=== PATIENT | female | born 1950 | race Caucasian/White ===

== ENCOUNTER → 2021-09-26 12:45 | Outpatient (BNVA) | payer OTHER, SELFPAY | PROVIDERS: Visit Provider Podiatrist Foot & Ankle Surgery | DX: B07.9 Viral wart, unspecified (principal); F17.210 Nicotine dependence, cigarettes, uncomplicated | CPT/HCPCS: 17110; 99203 ==

== ENCOUNTER 2021-10-31 13:39 | Outpatient (CLI) | payer OTHER, SELFPAY ==
--- NOTE | 2021-10-31 13:43 | US_ITS ---
WS: [id number] RIGHT UPPER QUADRANT ULTRASOUND HISTORY: R SIDED PAIN/BLOATING COMPARISON: None available. Liver: 14.3 cm in length. Moderate coarse echogenicity throughout the liver. Liver is normal size. No bile duct dilatation. No mass. Portal Vein: Normal hepatopetal flow with monophasic waveform. Gallbladder: Normally distended gallbladder with no stones or wall thickening. CBD: 0.7 cm Pancreas: Normal size and echogenicity. Right kidney: 10.7 cm in length. Normal size and echogenicity. No hydronephrosis or mass. Aorta and IVC: Unremarkable abdominal aorta and IVC. No ascites. US/US abdomen limited [id number] IMPRESSION: 1. Normal gallbladder. 2. Hepatic steatosis. No hepatomegaly.
== END 2021-10-31 13:40 | disposition home or self-care (01) ==
LOC: RAD 13:39
PROVIDERS: Visit Provider Nurse Practitioner
DX: B07.9 Viral wart, unspecified (principal); R14.0 Abdominal distension (gaseous); Z01.89 Encounter for other specified special examinations
CPT/HCPCS: 17110; 76705

== ENCOUNTER 2021-11-15 10:08 | Outpatient (CLI) | payer OTHER, SELFPAY ==
--- NOTE | 2021-11-15 10:17 | MM_ITS ---
WS: [id number] BILATERAL SCREENING DIGITAL BREAST TOMOSYNTHESIS MAMMOGRAM WITH CAD HISTORY: SCREENING COMPARISON: 07/18/2019, 06/18/2017 and 07/15/2013 Bilateral CC and MLO views with tomosynthesis and synthetic mammography submitted. Computer aided det ection analyzed. Breast composition: There are scattered areas of fibroglandular density. No suspicious masses, microc alcifications or architectural distortion. Asymmetry in the medial upper RIGHT breast is stable. Anant gn calcifications central LEFT breast. MM/[place] [id number] IMPRESSION: BI-RADS: 2-Benign FOLLOW UP: 1 Year Follow-up
== END 2021-11-15 10:09 | disposition home or self-care (01) ==
LOC: RAD 10:12
PROVIDERS: Visit Provider Nurse Practitioner
DX: Z12.31 Encounter for screening mammogram for malignant neoplasm of breast (principal)
CPT/HCPCS: 77063; 77067

== ENCOUNTER → 2022-01-01 12:43 | Outpatient (BNVA) | payer OTHER, SELFPAY | PROVIDERS: PCP Nurse Practitioner; Visit Provider Podiatrist Foot & Ankle Surgery | DX: B07.9 Viral wart, unspecified (principal) | CPT/HCPCS: 17110 ==

== ENCOUNTER 2022-02-07 15:03 | Outpatient (CLI) | payer OTHER, SELFPAY ==
--- NOTE | 2022-02-07 15:14 | XR_ITS ---
WS: [id number] SCREENING DEXA SCAN [place] CLINICAL INFORMATION: SCREENING FOR OSTEOPOROSIS COMPARISON: None. FINDINGS: The L1-L4 bone mineral density measures 1.218 g/cm2. This corresponds to a T score score of 0.3 and Z score of 1.7. Left femoral neck bone mineral density measures 1.090 g/cm2. This corresponds to a T score of 0.7 and Z score of 1.9. Right femoral neck bone mineral density measures 0.997 g/cm2. This corresponds to a T score -0.1of an d Z score of 1.1. Mean femoral neck bone mineral density measures 1.044 g/cm2. This corresponds to a T score of 0.3 and Z score of 1.5. XR/XR DEXA axial skeleton* [id number] IMPRESSION: Normal bone mineralization. Patient's FRAX calculated 10 year probability for major osteoporotic fracture i s 12.1 % and osteoporotic hip fracture is 3.3%.
== END 2022-02-07 15:04 | disposition home or self-care (01) ==
PROVIDERS: PCP Nurse Practitioner; Visit Provider Nurse Practitioner
DX: Z13.820 Encounter for screening for osteoporosis (principal); M85.88 Other specified disorders of bone density and structure, other site
CPT/HCPCS: 77080

== ENCOUNTER 2022-03-17 08:38 | Outpatient (CLI) | payer OTHER, SELFPAY ==
--- NOTE | 2022-03-17 08:42 | USCV_ITS ---
Missynick Elif Age: 71 Gender: F : 1950 Exam Date: 03/17/2022 08:46 Ordering Phys: Elly Trujillo Technologist: CT [place] [facility] [place] HISTORY: Diameter (cm) AP x Transverse x Length Velocity (cm/s) Waveform Prox Aorta: 2.00 x 2.10 x 89.20 Triphasic Mid Aorta: 1.74 x 1.71 x 78.40 Triphasic Distal Aorta: 1.64 x 1.54 x 109.60 Triphasic Right Iliac Prox: 1.12 x 1.12 x 161.10 Triphasic Left Iliac Prox: 1.21 x 1.48 x 109.60 Triphasic Stent Prox Landing x x Aneurysmal Sac Max x x Lt Lat Sac Dim Rt Lat Sac Dim Stent Dist Landing x x Right Iliac Stent x x Left Iliac Stent x x Right Renal Art Left Renal Art FINDINGS: ectatic dst ao CONCLUSIONS Slightly aneurysmal Distal Abdominal aorta measuring 1.8 x 1.7 cm AP x transverse Normal common iliac arteries. Ollie Kearney MD (Electronically Signed) Final Date: 17 March 2022 17:33 S
== END 2022-03-17 08:39 | disposition home or self-care (01) ==
LOC: RAD 08:39
PROVIDERS: PCP Nurse Practitioner; Visit Provider Nurse Practitioner
DX: Z13.6 Encounter for screening for cardiovascular disorders (principal)
CPT/HCPCS: 76706

== ENCOUNTER 2022-10-28 12:53 | Outpatient (RCR) | payer OTHER, SELFPAY | END 2022-11-14 23:59 | disposition home or self-care (01) | LOC: SPT 12:53 | PROVIDERS: PCP Family Medicine; Visit Provider Family Medicine | DX: M54.59 Other low back pain (principal) | CPT/HCPCS: 97110; 97161; 97530 ==

== ENCOUNTER 2022-11-15 06:00 | Outpatient (RCR) | payer OTHER, SELFPAY | END 2022-12-15 23:59 | disposition home or self-care (01) | LOC: SPT 06:00 | PROVIDERS: PCP Family Medicine; Visit Provider Family Medicine | DX: M54.50 Low back pain, unspecified (principal) | CPT/HCPCS: 97110 ==

== ENCOUNTER 2022-12-16 06:00 | Outpatient (RCR) | payer OTHER, SELFPAY | END 2023-01-06 23:59 | disposition home or self-care (01) | LOC: SPT 06:00 | PROVIDERS: PCP Family Medicine; Visit Provider Family Medicine | DX: M54.50 Low back pain, unspecified (principal) | CPT/HCPCS: 97110; 97530 ==

== ENCOUNTER 2024-09-30 10:07 | Outpatient (CLI) | payer OTHER, SELFPAY ==
--- NOTE | 2024-09-30 | MM_ITS ---
WS: [id number] BILATERAL SCREENING DIGITAL TOMOSYNTHESIS MAMMOGRAM WITH CAD HISTORY: ANNUAL SCREENING COMPARISON: 11/15/2021, 07/18/2019 Bilateral CC and MLO views with tomosynthesis and synthetic mammography submitted. Computer aided detection analyzed. Breast composition: There are scattered areas of fibroglandular density. No suspicious masses, microcalcifications or architectural distortion. Scattered asymmetries are stable. Lobulated calcification in the central LEFT breast is also stable. MM/MM [facility] tomosynthesis [id number] IMPRESSION: BI-RADS: 2 - Benign. FOLLOW UP: 1 Year Follow-up
== END 2024-09-30 10:08 | disposition home or self-care (01) ==
LOC: RAD 10:08
PROVIDERS: PCP Family Medicine; Visit Provider Family Medicine
DX: Z12.31 Encounter for screening mammogram for malignant neoplasm of breast (principal); R92.323 Mammographic fibroglandular density, bilateral breasts; N64.89 Other specified disorders of breast; R92.1 Mammographic calcification found on diagnostic imaging of breast
CPT/HCPCS: 77063; 77067

== ENCOUNTER → 2024-10-25 09:51 | Outpatient (BNVA) | payer OTHER, SELFPAY | PROVIDERS: PCP Family Medicine; Referring Provider Family Medicine; Visit Provider Anesthesiology Pain Medicine | DX: M54.9 Dorsalgia, unspecified (principal) | CPT/HCPCS: 99204 ==

== ENCOUNTER 2024-10-31 11:15 | Outpatient (CLI) | payer OTHER, SELFPAY ==
--- NOTE | 2024-10-31 11:21 | MR_ITS ---
WS: [id number] MRI LUMBAR SPINE NONCONTRAST HISTORY: LUMBAR RADICULOPATHY COMPARISON: None available. TECHNIQUE: Sagittal and axial multisequence imaging is submitted. Mild cervical spondylosis. T11 anterior wedging is chronic. No retropulsion. 3 mm retrolisthesis of L2 and L3. Disc spaces are all mildly narrowed and desiccated throughout the lumbar spine. No acute marrow edema or fracture. Conus terminates normally at L1-2 disc level. L1-L2: Mild annular disc bulging no stenosis. L2-L3: Annular disc bulging, ligamentum flavum and facet arthritis. Mild disc encroachment upon the subarticular recesses and traversing L3 nerve roots. Mild subarticular recess stenosis. L3-L4: Diffuse annular disc bulging encroaching upon the ventral thecal sac and subarticular recesses. Disc contacts the traversing L4 nerve roots. Small amount of fluid in the facet joints. Mild central, bilateral subarticular recess and foraminal stenosis. L4-L5: Diffuse annular disc bulging with ligamentum flavum and facet arthritis. Small amount of fluid in the facet joints. There is disc contacting the traversing L5 nerve roots. Mild central, bilateral subarticular recess and foraminal stenosis. L5-S1: Mild annular disc bulging with osteophytic ridging and facet arthritis. Moderate foraminal stenosis, bilateral. Due to combination of disc and osteophyte and facet disease. Paravertebral soft tissues are negative. MR/MR lumbar spine wo con* [id number] IMPRESSION: 1. Moderate bilateral foraminal stenosis at L5-S1 due to combination of disc a nd osteophyte and facet disease. 2. L4-5: Mild central, bilateral subarticular recess and foraminal stenosis. S lightly greater contact on the traversing L5 nerve roots. 3. L3-4: Mild central, bilateral subarticular recess and foraminal stenosis. M ild disc contact on the traversing L5 nerve roots. 4. L2-3: Mild subarticular recess stenosis.
== END 2024-10-31 11:16 | disposition home or self-care (01) ==
PROVIDERS: PCP Family Medicine; Visit Provider Family Medicine
DX: M54.16 Radiculopathy, lumbar region (principal); M48.07 Spinal stenosis, lumbosacral region; M48.061 Spinal stenosis, lumbar region without neurogenic claudication; M47.897 Other spondylosis, lumbosacral region; M25.78 Osteophyte, vertebrae
CPT/HCPCS: 72148

== ENCOUNTER → 2024-11-07 10:54 | Outpatient (BNVA) | payer OTHER, SELFPAY | PROVIDERS: PCP Family Medicine; Visit Provider Anesthesiology Pain Medicine | DX: M16.12 Unilateral primary osteoarthritis, left hip (principal); M54.9 Dorsalgia, unspecified | CPT/HCPCS: 99214 ==

== ENCOUNTER 2024-11-14 09:18 | Outpatient (CLI) | payer OTHER, SELFPAY ==
--- NOTE | 2024-11-14 09:25 | XR_ITS ---
WS: [email or web address] XR hip LT 2-3V wo/w pel* [id number] REASON FOR EXAM: M16.12 - Unilateral primary osteoarthritis, left hip FINDINGS: No fracture or focal bone lesion. Significant diffuse narrowing of the joint space with moderate subchondral sclerosis and osteophytosis of the acetabulum. Mild osteophytosis and subchondral sclerosis of the femoral head. XR/XR hip LT 2-3V wo/w pel* [id number] IMPRESSION: Significant osteoarthritis of the left hip.
== END 2024-11-14 09:19 | disposition home or self-care (01) ==
LOC: RAD 09:20
PROVIDERS: PCP Family Medicine; Visit Provider Anesthesiology Pain Medicine
DX: M16.12 Unilateral primary osteoarthritis, left hip (principal); M25.752 Osteophyte, left hip
CPT/HCPCS: 73502

== ENCOUNTER → 2024-12-12 10:51 | Outpatient (BNVA) | payer OTHER, SELFPAY | PROVIDERS: PCP Family Medicine; Visit Provider Anesthesiology Pain Medicine | DX: M54.9 Dorsalgia, unspecified (principal); M16.12 Unilateral primary osteoarthritis, left hip | CPT/HCPCS: 99214 ==

== ENCOUNTER → 2024-12-28 14:24 | Outpatient (BNVA) | payer OTHER, SELFPAY | PROVIDERS: PCP Family Medicine; Visit Provider Anesthesiology Pain Medicine | DX: M16.12 Unilateral primary osteoarthritis, left hip (principal) | CPT/HCPCS: 20610; 77002; J1010; J3490 ==

== ENCOUNTER → 2025-01-09 09:07 | Outpatient (BNVA) | payer OTHER, SELFPAY | PROVIDERS: PCP Family Medicine; Visit Provider Anesthesiology Pain Medicine | DX: M54.9 Dorsalgia, unspecified (principal); M16.12 Unilateral primary osteoarthritis, left hip | CPT/HCPCS: 99214 ==

== ENCOUNTER → 2025-03-13 08:49 | Outpatient (BNVA) | payer OTHER, SELFPAY | PROVIDERS: PCP Family Medicine; Visit Provider Anesthesiology Pain Medicine | DX: M54.9 Dorsalgia, unspecified (principal); M16.12 Unilateral primary osteoarthritis, left hip | CPT/HCPCS: 99214 ==

== ENCOUNTER → 2025-03-22 14:41 | Outpatient (BNVA) | payer OTHER, SELFPAY | PROVIDERS: PCP Family Medicine; Visit Provider Anesthesiology Pain Medicine | DX: M16.12 Unilateral primary osteoarthritis, left hip (principal) | CPT/HCPCS: 20610; 77002; J1010; J3490; J9999 ==

== ENCOUNTER → 2025-04-17 13:18 | Outpatient (BNVA) | payer OTHER, SELFPAY | PROVIDERS: PCP Family Medicine; Visit Provider Anesthesiology Pain Medicine | DX: M54.9 Dorsalgia, unspecified (principal); M16.12 Unilateral primary osteoarthritis, left hip; F17.200 Nicotine dependence, unspecified, uncomplicated | CPT/HCPCS: 99213 ==